=== PATIENT | male | born 1975 | race Caucasian/White ===

== ENCOUNTER 2023-07-04 09:46 | Emergency (ER) | payer SELFPAY ==
[2023-07-04 09:48] VITALS: BP 154/99; PULSE 83; RESP 16; TEMP 36.3; O2SAT 97; BMI 26.1
--- NOTE | 2023-07-04 10:24 | ED.VIS.LOWEX ---
HPI History of Present Illness Chief Complaint: Lower Extremity Injury Informant: patient Narrative Narrative: Presenting right foot injury 2 days ago[place] shallow [place], came down onto his foot wrong.'s been limping on it. Is been using ibuprofen last dose prior to arrival. No head injuries. States was not intoxicated during the episode. History of finger fractures in the past. No allergies. No past chronic medical history. PFSH PFSH Home Medications hydrocodone-acetaminophen 5-325mg 5mg-325mg 1 tab PO Q6H PRN PRN Pain 3 days #12 TABLETS 07/04/23 [Rx Last Taken Unknown] Allergy/AdvReac Type Severity Reaction Status Date / Time No Known Allergies Allergy Verified 07/04/23 09:47 Social History Smoking Status: Unknown if ever smoked ROS ROS ED Constitutional Constitutional ED: Denies chills, fever(s) or sweats Eyes Eyes: Denies change in vision ENT ENT ED: Denies dysphagia or sore throat Cardiovascular Cardiovascular: Denies chest pain, leg edema, palpitations or racing heartbeat Respiratory/Chest Respiratory/Chest: Denies cough, dyspnea or dyspnea on exertion Gastrointestinal Gastrointestinal: Denies abdominal pain, diarrhea, nausea or vomiting Genitourinary Genitourinary ED: Denies dysuria, hematuria or urinary frequency Musculoskeletal Musculoskeletal: Reports extremity pain; Denies back pain or neck pain Integumentary Denies rash or wounds Neurologic Neurologic: Denies headache(s), paresthesias or weakness EXAM Physical Exam Const Vital Signs: 07/04/23 09:48 Temperature 97.4 F L Temperature Source Temporal Pulse Rate 83 Respiratory Rate 16 Blood Pressure 154/99 H Blood Pressure Mean 117 Pulse Ox 97 Oxygen Delivery Method Room Air Positive well nourished and well developed General Appearance ED: well developed and NAD HEENT Reports moist mucous membranes normocephalic and atraumatic Eyes PERRL, EOMs intact bilaterally and conjunctivae normal General Eye ED: Yes normal appearance of both eyes Neck no lymphadenopathy and supple General: Negative for tenderness Chest Wall Chest: Negative for tenderness Resp normal respiratory effort and normal air movement Effort and Inspection: symmetric chest movement; Negative for respiratory distress Cardio regular rate, regular rhythm and no murmurs Peripheral Pulses: pulses 2+ throughout GI normal to inspection, nondistended, normoactive bowel sounds and non-tender Palpation: Negative for guarding or rebound tenderness present Back/Spine no CVA tenderness and no thoracic nor lumbar tenderness Extremity Extremity Narrative: Right lower extremity: Patellar abrasion, nontender. No ankle tenderness. There is swelling to the whole dorsal right foot with skin intact. Significant tenderness along the dorsal distal and midfoot. Skin is intact. Cap refill less than 3 seconds. General Extremety ED: Negative for edema or tenderness General Extremity: Negative for edema Neuro oriented x3 and no sensory deficits noted Sensorium / Orientation: awake and alert Skin no rashes or lesions noted and no wounds MDM MDM MDM Narrative Medical decision making narrative: Interventions / MDM: Differential diagnosis:Foot fracture Diagnosis considered but do not suspect: N/A My EKG interpretation: N/A Imaging independently reviewed and interpreted by myself: Right foot x-ray 3 views: Distal second third metatarsal fracture. CT right foot: Distal second third metatarsal fracture. External documents reviewed: N/A Test considered but not ordered:N/A ED course: Patient with swelling the foot tenderness distal foot, x-ray ordered hydrocodone ordered for pain control. X-ray positive distal second third metatarsal fracture. I did speak with filling technician Dr. Alberto, will obtain CT scan in the ED due to significant swelling. Agrees with posterior splint nonweightbearing crutches and follow-up with him. CT scan no additional fractures noted. Splint was placed by myself short prescription for pain control with podiatry follow-up. Splinting: Nylon sleeve was placed, Kerlix padding used, 5 inch plaster short posterior splint placed in 90 degree position of the foot. Antonio wrap to secure. Neurovascular intact post splinting. Patient tolerated well. Re-evaluation: stable Disposition discussed with patient/family/significant other: Patient Case discussed with consulting clinician: Podiatry This note was generated with [employer] dictation software. It may contain incorrect words, spelling, and punctuation that were not noted in checking the note before signing. Radiography Diagnostic Testing: Clinical Impression(s) from Imaging Studies Foot X-Ray 07/04/23 10:33 IMPRESSION: Fracture of the second and third metatarsals. Electronically Signed: Chiki Yadav MD at 10:48 EDT , Lower Extremity CT 07/04/23 11:27 IMPRESSION: Fractures of the head of the second and third metatarsals. Electronically Signed: Chiki Yadav MD at 12:17 EDT , Discharge Plan Triage Chief Complaint: Lower Extremity Injury ED Provider: Kimo Roman Dx/Rx/DC Orders Clinical Impression: Foot fracture, right Instructions: ED Fracture, Foot Prescriptions: New hydrocodone-acetaminophen [hydrocodone-acetaminophen] 5-325 mg tablet 1 tab PO Q6H PRN PRN (Reason: Pain) 3 Days Qty: 12 0RF Stand Alone Forms: ED Work / School Excuse Primary Care Provider: Care Physician,No Primary Referrals: Alvaro Alberto DPM [Med Staff - Active Staff] - 3-5 Days [facility] Doctor,Out of [Non-Staff] - Activity Restrictions/Additional Instructions: X-ray and CT scan right foot notes distal second third metatarsal fracture. Maintain splint nonweightbearing crutches for support. Pain medicine as prescribed. Continue to elevate your right lower extremity to help with swelling. Follow-up with Dr. Ramirez. Disposition Disposition: Home, Self Care Discharge Date/Time: 07/04/23 13:05
[2023-07-04] MEDS: HYDROcodone Bitartrate/Apap 5/325 Tablet PO (10:32)
--- NOTE | 2023-07-04 10:33 | RAD_ITS ---
INDICATION: injury EXAMINATION/TECHNIQUE: X-RAY - RIGHT XR Foot Min 3 Views 3 VIEWS COMPARISON: None. FINDINGS: SOFT TISSUES: No soft tissue swelling or gas. No radiopaque foreign body. BONES/JOINTS: Fractures of the head of the second and third metatarsals of undetermined age. No other fractures are seen. Normal alignment. Preservation of the joint space.. No sclerotic or destructive changes observed. RAD/Foot min 3 Views IMPRESSION: Fracture of the second and third metatarsals. Electronically Signed: Chiki Yadav MD at 10:48 EDT ,
--- NOTE | 2023-07-04 11:27 | CT_ITS ---
CT RIGHT LOWER EXTREMITY WITH 3-D IMAGING CLINICAL INDICATION: Injury, possible fracture. TECHNIQUE: Axial CT images of the RIGHT lower extremity was performed without IV contrast material. Coronal and sagittal reformats were provided. RADIATION DOSAGE (If Supplied By Facility): CTDIvol = ( 15.35 ) mGy, DLP = ( 392.14 ) mGycm COMPARISON: No prior examinations are available for comparison. FINDINGS: Bones: Comminuted nondisplaced fracture of the head of the third metatarsal. Nondisplaced fracture of the head of the second metatarsal. The age of the fracture is undetermined likely acute. The remainder of the osseous structures are intact. Small calcific density adjacent to the posterior lateral aspect of the cuboid. Soft Tissues: Soft tissue swelling of the foot. The ligaments and tendons are better evaluated by MRI. CT/Extremity Lower without Contra IMPRESSION: Fractures of the head of the second and third metatarsals. Electronically Signed: Chiki Yadav MD at 12:17 EDT ,
== END 2023-07-04 13:05 | disposition home or self-care (01) ==
PROVIDERS: Emergency Provider Emergency Medicine; Visit Provider Emergency Medicine
DX: S92.334A Nondisplaced fracture of third metatarsal bone, right foot, initial encounter for closed fracture (principal); Y93.89 Activity, other specified; Y92.832 Beach as the place of occurrence of the external cause; X50.9XXA Other and unspecified overexertion or strenuous movements or postures, initial encounter; S92.324A Nondisplaced fracture of second metatarsal bone, right foot, initial encounter for closed fracture
CPT/HCPCS: 29515; 73630; 73700; 99284

== ENCOUNTER 2023-11-09 10:10 | Emergency (ER) | payer BC, SELFPAY ==
[2023-11-09 10:11] VITALS: BP 154/97; PULSE 72; RESP 18; TEMP 36.2; O2SAT 99; BMI 26.7
[2023-11-09] MEDS: Albuterol 2.5 MG/3 ML VIAL.NEB. INHALATION ×3 (10:56→10:57)
[2023-11-09 10:59] VITALS: PULSE 61; RESP 16
[2023-11-09] MEDS: 0.9% Normal Saline (1000mL) 1,000 ML 1000 ML IV (11:41)
--- NOTE | 2023-11-09 11:54 | RAD_ITS ---
STUDY: X-RAY CHEST REASON FOR EXAM: Male, 48 years old. Productive cough, fever, wheezing TECHNIQUE: PA and lateral views of the chest. COMPARISON: None. FINDINGS: Hyperinflation. Calcified granulomas in the right lung. No acute abnormality is seen. There is no demonstrated pleural abnormality. Normal size heart. Normal mediastinum and sidney. Normal visualized pulmonary arteries. Normal visualized aortic arch and descending thoracic aorta. There are mild degenerative changes of the visualized thoracic spine. Normal visualized ribs, clavicles, and shoulders. There is no demonstrated abnormality of the visualized soft tissue structures of the upper abdomen. RAD/Chest PA and Lateral IMPRESSION: Hyperinflation. No acute abnormality is seen. Electronically Signed: Mark Dior MD at 12:14 EST ,
--- NOTE | 2023-11-09 12:57 | EDS_ITS ---
HPI History of Present Illness Chief Complaint: General Illness Detail of Chief Complaint: Respiratory tract infectious symptoms with myalgias and arthralgias Informant: patient Onset/Context/Timing Onset: Days (Said 67 days ago.) Context: Onset with activity Timing: Continuous and Waxes and wanes Quality: Respiratory tract infectious symptoms. Location: Respiratory and generalized Current Severity: Mild Maximum Severity: Moderate Worsened by: Coughing and exertion with increased shortness of breath Relieved by: Nothing Associated Symptoms Associated Symptoms: Fever documented 101.8 ?F. Patient states afebrile today. Narrative Narrative: Patient is a 48-year-old male who is a smoker of 1 pack/day since age of 16. He presents with cough, shortness of breath, dyspnea on exertion, wheezing, myalgias and arthralgias. Patient has done 3 home COVID tests which were all negative. He was exposed to family member with COVID. Patient does report nausea without vomiting or diarrhea. Patient denies headache, photophobia, neck pain or neck stiffness. Patient denies rash. Patient denies joint swelling. Patient denies dysuria, frequency, urgency or hematuria. Patient reports slightly decreased urine put. Patient states he is only smoking a couple cigarettes a day. Prior similar symptoms: No Recent Illness/Hospitalization: No PFSH PFSH Medical History no medical history no medical history Home Medications hydrocodone-acetaminophen 5-325mg 5mg-325mg 1 tab PO Q6H PRN PRN Pain 3 days #12 TABLETS 07/04/23 [Rx Last Taken Unknown] Allergy/AdvReac Type Severity Reaction Status Date / Time No Known Allergies Allergy Verified 11/09/23 10:10 Social History (Updated 11/09/23 @ 13:[address] Armando Oliveira MD) household members: spouse Smoking Status: Current every day smoker alcohol intake: current ROS ROS ED Constitutional Constitutional ED: Reports chills, fever(s) and sweats Eyes Eyes: Denies blurry vision, change in vision or diplopia ENT ENT ED: Reports rhinorrhea and sore throat; Denies ear pain Cardiovascular Cardiovascular: Reports racing heartbeat; Denies chest pain, orthopnea, palpitations or paroxysmal nocturnal dyspnea Respiratory/Chest Respiratory/Chest: Reports cough, dyspnea and dyspnea on exertion; Denies orthopnea, paroxysmal nocturnal dyspnea or sputum Gastrointestinal Gastrointestinal: Reports nausea; Denies abdominal pain, diarrhea or vomiting Genitourinary Genitourinary ED: Denies dysuria, hematuria or urinary frequency Musculoskeletal Musculoskeletal: Reports arthralgias and myalgias Integumentary Reports rash Neurologic Neurologic: Reports headache(s) and weakness; Denies paresthesias Endocrine Endocrinology: Denies cold intolerance or heat intolerance Hematologic/Lymphatic Hematologic/Lymphatic: Reports systems reviewed and no addt'l complaints, except as documented EXAM Physical Exam Const Vital Signs: 11/09/23 10:11 11/09/23 10:59 Temperature 97.2 F L Temperature Source Temporal Pulse Rate 72 61 Respiratory Rate 18 16 Respiratory Pattern Normal Blood Pressure 154/97 H Blood Pressure Mean 116 Pulse Ox 99 Oxygen Delivery Method Room Air Positive well nourished and well developed Constitutional Narrative: Patient appears ill but not toxic. +'s are marked for an elevated blood pressure. General Appearance ED: well developed, NAD and pallor HEENT Reports dry mucous membranes HEENT Narrative: Is atraumatic and normocephalic. Nares positive clear drainage. Posterior pharynx is normal. Uvula is headline. There is no dysphonia. Mouth ED: Yes dry mucous membranes Mouth: dry mucous membranes Eyes PERRL and EOMs intact bilaterally General Eye ED: Negative for pale conjunctiva or scleral icterus Neck no lymphadenopathy, supple and no JVD Chest Wall inspection of chest normal and palpation of chest normal Resp normal respiratory effort and No clear to auscultation bilaterally Resp Narrative: Expiratory phase is slightly increased. Auscultation: wheezes expiratory wheezes and throughout Cardio regular rate, regular rhythm, S1 normal heart sound, S2 normal heart sound and no murmurs GI normal to inspection, nondistended, normoactive bowel sounds, non-tender, non- distended and no masses; Negative for hepatosplenomegaly Back/Spine no CVA tenderness Thoracic Spine / Upper Back: Negative for thoracic spinal tenderness Lumbar Spine / Lower Back: Negative for lumbar spinal tenderness Extremity normal to inspection Extremity Narrative: There is no asymmetry, swelling, discoloration, leg vein distention, palpable cords or tenderness along the distribution of the deep venous system. General Extremety ED: Negative for edema or tenderness General Extremity: Negative for edema Neuro oriented x3, CN's II-XII intact bilaterally and no sensory deficits noted Sensorium / Orientation: alert Psych mental status grossly normal Skin no rashes or lesions noted, no wounds and No skin turgor normal General Skin Exam: elasticity normal and pallor; Negative for jaundice MDM MDM MDM Narrative Medical decision making narrative: Presents with 1 week of upper respiratory tract infectious symptoms. Has had 3 negative COVID test. Symptoms are suggestive of influenza since has had 3 negative COVID test. Will obtain influenza panel. Chest x-ray is obtained to rule out pneumonia. Clinically patient appears dehydrated. Liter of normal saline was ordered. 3 albuterol treatments were ordered. Lab Data Attestation: I reviewed the patient's lab results. Lab results narrative: Rapid test for COVID and influenza and RSV were negative. Radiography Chest X-Ray - ED: 2 View and Read by ED Physician (Cardiac silhouette and size are normal. Lung parenchyma is normal. There is slight hyperaeration. Med iastinum is normal. Osseous structures unremarkable. This was independent reviewed interpreted by me at 10/31/2001.) Diagnostic Testing: Clinical Impression(s) from Imaging Studies Chest X-Ray 11/09/23 11:54 IMPRESSION: Hyperinflation. No acute abnormality is seen. Electronically Signed: Mark Dior MD at 12:14 EST , Treatment and Re-Evaluation :: Assessed at 1325. Patient is no longer wheezing. He is not tachypneic or tachycardic. Since patient has never used an inhaler will help respiratory instruct him how to use an inhaler and he will be discharged home. Discharge Plan Triage Chief Complaint: General Illness ED Provider: Armando Oliveira Dx/Rx/DC Orders Clinical Impression: Systemic viral illness, Fever in adult, Acute bronchospasm, Bronchitis, acute, Elevated BP without diagnosis of hypertension, Tobacco use Instructions: Acute Bronchitis Prescriptions: No Action hydrocodone-acetaminophen [hydrocodone-acetaminophen] 5-325 mg tablet 1 tab PO Q6H PRN PRN (Reason: Pain) 3 Days Qty: 12 0RF Primary Care Provider: Care Physician,No Primary Referrals: Casey Grissom MD [Med Staff - Academic Dean] - 1 Week if not improving Care Physician,No Primary [Primary Care Provider] - Activity Restrictions/Additional Instructions: 1. 2 puffs of inhaler every 2-4 hours for the next 2 to 3 days while awake. 2. On the fourth day 2 puffs every 2-4 hours as needed for shortness of breath or wheezing 3. It is in your best interest to stop smoking 4. Because you are a smoker you may have a cough up to 4 weeks. Disposition Disposition: Home, Self Care
[2023-11-09] MEDS: Albuterol Sulfate 8 gm Inhaler (60 puffs) 4 PUFF INHALATION (13:40)
== END 2023-11-09 13:42 | disposition home or self-care (01) ==
PROVIDERS: Emergency Provider Emergency Medicine; Visit Provider Emergency Medicine
DX: B34.9 Viral infection, unspecified (principal); J20.9 Acute bronchitis, unspecified; R03.0 Elevated blood-pressure reading, without diagnosis of hypertension; R50.9 Fever, unspecified; F17.210 Nicotine dependence, cigarettes, uncomplicated
CPT/HCPCS: 71046; 87631; 94640; 96360; 99283; J7030; A4216

== ENCOUNTER 2023-12-28 09:29 | Emergency (ER) | payer BC, SELFPAY ==
[2023-12-28 09:30] VITALS: BP 146/102; PULSE 88; RESP 16; TEMP 37.2; O2SAT 98; BMI 26.6
[2023-12-28 09:33] VITALS: O2SAT 97
--- NOTE | 2023-12-28 09:33 | EDS_ITS ---
HPI History of Present Illness Chief Complaint: Shortness of Breath Informant: patient Onset/Context/Timing Onset: Days (4) Context: Gradual Onset Timing: Continuous Quality: Aching Location: Generalized Worsened by: Cough, movement Relieved by: Rest Narrative Narrative: Patient presents with fever, body aches, cough, and shortness of breath that has been getting worse over the last 4 days. Patient states it is gradually getting worse. Patient states he feels achy all over. Patient states his fever at home was up to 101. Patient states his symptoms are worse with coughing and with movement. Patient states his pain is better with rest. Patient admits to decr eased appetite. Patient admits to some rhinorrhea and sore throat. Patient denies any sputum production with his cough. PFSH PFSH Medical History no medical history no medical history Home Medications NK 12/28/23 [History Last Taken Unknown] Allergy/AdvReac Type Severity Reaction Status Date / Time No Known Allergies Allergy Verified 12/28/23 09:30 Surgical History no surgical history no surgical history Social History household members: spouse Smoking Status: Current every day smoker tobacco type: cigarettes alcohol intake: current ROS ROS ED Constitutional Constitutional ED: Reports fever(s); Denies chills Eyes Eyes: Denies blurry vision or change in vision ENT ENT ED: Reports rhinorrhea and sore throat Cardiovascular Cardiovascular: Denies chest pain or palpitations Respiratory/Chest Respiratory/Chest: Reports cough and dyspnea Gastrointestinal Gastrointestinal: Denies nausea or vomiting Genitourinary Genitourinary ED: Denies dysuria or hematuria Musculoskeletal Musculoskeletal: Reports myalgias Integumentary Denies abscess or rash Neurologic Neurologic: Reports headache(s); Denies weakness Allergic/Immunologic Allergic/Immunologic ED: Denies mouth swelling or urticaria EXAM Physical Exam Const Vital Signs: 12/28/23 09:30 Temperature 99 F Temperature Source Temporal Pulse Rate 88 Respiratory Rate 16 Blood Pressure 146/102 H Blood Pressure Mean 116 Pulse Ox 98 Oxygen Delivery Method Room Air Positive well nourished and well developed General Appearance ED: well developed and NAD HEENT Reports moist mucous membranes HEENT Narrative: Oropharynx is clear. Airway is patent. There are no exudates noted. Neck no lymphadenopathy, supple and no JVD Resp normal respiratory effort Auscultation: wheezes expiratory wheezes and throughout Cardio regular rate and regular rhythm GI non-tender and non-distended Palpation: soft Extremity normal to inspection General Extremety ED: Negative for edema or tenderness General Extremity: Negative for edema Neuro oriented x3, CN's II-XII intact bilaterally and no sensory deficits noted Sensorium / Orientation: alert Motor Exam: strength 5/5 throughout Psych mental status grossly normal MDM MDM MDM Narrative Medical decision making narrative: Differential diagnosis includes pneumonia, viral bronchitis, and viral upper respiratory infection. Chest x-ray will be obtained to assess for pneumonia and pneumothorax. COVID-19, influenza, and RSV PCR will be obtained to assess for viral infection. Lab Data Lab results narrative: COVID-19 PCR was reviewed and was negative. Influenza PCR was reviewed and was negative for influenza A and influenza B. RSV PCR was reviewed and was negative . Radiography Chest X-Ray - ED: 2 View, Read by ED Physician, Read by Radiologist and No Acute Disease Diagnostic Testing: PA and lateral chest x-ray was obtained. There are 2 views. On my independent interpretation, lung britton are clear. There is normal cardiac silhouette. Bony thorax is normal. There is no acute process noted. Radiologist also interpreted the x-ray and agrees. Treatment and Re-Evaluation :: Patient was given a DuoNeb aerosol here. Patient was advised of his findings. Patient was instructed to follow-up with his primary care physician in 5 to 7 days. Patient was given a prescription for an albuterol inhaler. Patient was instructed to continue Tylenol and ibuprofen as needed for any aches or fevers. Patient was instructed return if worse in any way. Patient understood and was agreeable with the plan. All questions were answered. Discharge Plan Triage Chief Complaint: Shortness of Breath Other Complaint: Cold Sx ED Provider: Casey Barragan Dx/Rx/DC Orders Clinical Impression: Reactive airway disease, Viral bronchitis Instructions: ED Bronchitis with Wheezing (Adult) Prescriptions: No Action NK Stand Alone Forms: ED Work / School Excuse Primary Care Provider: Care Physician,No Primary Referrals: Guille Beltran DO [Med Staff - Machine Filler Servicer] - 5-7 Days Care Physician,No Primary [Primary Care Provider] - Disposition Disposition: Home, Self Care
--- NOTE | 2023-12-28 09:50 | RAD_ITS ---
STUDY: X-RAY CHEST REASON FOR EXAM: Male, 48 years old. Cough TECHNIQUE: PA and lateral views of the chest. COMPARISON: Comparison is made with prior study dated November 09, 2023. FINDINGS: Hyperinflation. The lungs are clear. There is no demonstrated pleural abnormality. Normal size heart. Normal mediastinum and sidney. Normal visualized pulmonary arteries. Normal visualized aortic arch and descending thoracic aorta. Normal visualized thoracic spine. Normal visualized ribs, clavicles, and shoulders. There is no demonstrated abnormality of the visualized soft tissue structures of the upper abdomen. RAD/Chest PA and Lateral IMPRESSION: Hyperinflation. The lungs are clear. Electronically Signed: Mark Dior MD at 10:12 [facility] ,
[2023-12-28] MEDS: Ipratropium/Albuterol Sulfate 3 ML AMPUL.NEB INHALATION (10:07)
[2023-12-28 10:09] VITALS: RESP 16
[2023-12-28 10:19] VITALS: BP 147/105; PULSE 72; RESP 18; TEMP 36.6; O2SAT 94
[2023-12-28 11:30] VITALS: BP 147/105; PULSE 72; RESP 22; TEMP 36.6; O2SAT 94
== END 2023-12-28 11:32 | disposition home or self-care (01) ==
PROVIDERS: Emergency Provider Emergency Medicine; Visit Provider Emergency Medicine
DX: R06.02 Shortness of breath (principal); J20.8 Acute bronchitis due to other specified organisms; F17.210 Nicotine dependence, cigarettes, uncomplicated; R50.9 Fever, unspecified; J45.909 Unspecified asthma, uncomplicated
CPT/HCPCS: 71046; 87631; 94640; 99283